=== PATIENT | male | born 1980 | race African-American/Black ===

== ENCOUNTER 2022-04-28 13:54 | Outpatient (CLI) | payer SELFPAY ==
[2022-04-28 22:44] LABS: Albumin* 4.9 g/dL (3.3-5.0)
[2022-04-28 22:45] LABS: Chloride* 102 mmol/L (96-114); Potassium* 4.2 mmol/L (3.6-5.1); Sodium* 139 mmol/L (135-149)
[2022-04-28 22:47] LABS: Alkaline Phosphatase* 125 U/L (40-150); Aspartate Amino Transferase* 24 U/L (12-35); Bilirubin Total* 0.9 mg/dL (0.1-1.5); Blood Urea Nitrogen* 11 mg/dL (5-24); Carbon Dioxide* 27 mmol/L (20-32); Cholesterol* 171 mg/dL (90-199); Estimated Glomerular Filt Rate 98 ml/min; Total Protein* 8.4 g/dL (6.0-8.3)
[2022-04-28 22:48] LABS: Alanine Aminotransferase* 16 U/L (4-50); Calcium* 9.6 mg/dL (8.4-10.6); Glucose* 92 mg/dL (60-115); HDL Cholesterol* 39 mg/dL (>=40); LDL Cholesterol Calculated 118 mg/dL (<100); Triglycerides* 69 mg/dL (40-149)
[2022-04-28 23:22] LABS: Vitamin B12* 356 pg/mL (243-894)
== END 2022-04-28 13:55 | disposition home or self-care (01) ==
PROVIDERS: Visit Provider Physician Assistant Medical
DX: M79.10 Myalgia, unspecified site (principal)
CPT/HCPCS: 80053; 80061; 82607; 83735; 84443

== ENCOUNTER 2023-11-09 11:29 | Outpatient (CLI) | payer OTHER, SELFPAY | END 2023-11-09 11:30 | disposition home or self-care (01) | PROVIDERS: PCP Nurse Practitioner Family; Visit Provider Nurse Practitioner Family | DX: R10.11 Right upper quadrant pain (principal); R10.31 Right lower quadrant pain; Z11.1 Encounter for screening for respiratory tuberculosis | CPT/HCPCS: 80053; 86480; 87338 ==